=== PATIENT | male | born 1960 | race Caucasian/White ===

== ENCOUNTER 2021-11-25 20:34 | Emergency (ER) | payer MEDICARE ==
[~2021-11-25] VITALS: Ht 172.7 cm; Wt 79.0 kg
[2021-11-25] MEDS ORDERED: JARDIANCE25 MG PO (21:06)
[2021-11-25] MEDS ORDERED: HYDROCHLOROT25 MG PO (21:06)
[2021-11-25] MEDS ORDERED: PROTONIX40 M2 PO (21:08)
[2021-11-25] MEDS ORDERED: NORVASC5 M1 PO (21:09)
[2021-11-25] MEDS ORDERED: LEVOTHYROXIN112 MC1 PO (21:09)
[2021-11-25] MEDS ORDERED: VITAMIN D325 MCG PO (21:10)
[2021-11-25] MEDS ORDERED: ZITHROMAX Z-PA250 MG PO (21:11)
[2021-11-25] MEDS ORDERED: TRESIBA FL200 UNIT/M SC (21:12)
[2021-11-25] MEDS ORDERED: VOLTAREN75 MG PO (21:35)
[2021-11-25] MEDS ORDERED: LORTAB5 PO (21:35)
[2021-11-25 21:39] VITALS: BP 154/66
== END 2021-11-25 21:50 | disposition home or self-care (01) ==
LOC: ED 20:34
DX: H02.002 Unspecified entropion of right lower eyelid (principal); H02.005 Unspecified entropion of left lower eyelid; I10 Essential (primary) hypertension; E11.9 Type 2 diabetes mellitus without complications; K21.9 Gastro-esophageal reflux disease without esophagitis; Z79.4 Long term (current) use of insulin; Z86.69 Personal history of other diseases of the nervous system and sense organs

== ENCOUNTER 2021-12-02 21:39 | Emergency (ER) | payer MEDICARE ==
[~2021-12-02] VITALS: Ht 172.7 cm; Wt 79.0 kg
[~2021-12-02 21:39] MED LIST: HYDROCHLOROT25 MG PO; JARDIANCE25 MG PO; LEVOTHYROXIN112 MC1 PO; LORTAB5 PO; NORVASC5 M1 PO; PROTONIX40 M2 PO; TRESIBA FL200 UNIT/M SC; VITAMIN D325 MCG PO; VOLTAREN75 MG PO; ZITHROMAX Z-PA250 MG PO
[2021-12-02 22:50] LABS: HEMATOCRIT 32.3 % (39.0-50.0); HEMOGLOBIN 9.9 g/dl (14.0-18.0); IMMATURE GRANULOCYTES 0.5 % (0.0-5.0); MEAN CELL VOLUME 76.4 fL CALC (80.0-100.0); MEAN CORPUSCULAR HGB 23.4 pG CALC (26.0-32.0); MEAN CORPUSCULAR HGB CONC 30.7 g/dL CAL (32.0-36.0); NEUT# 6.15 thou/uL (1.82-7.42); RED BLOOD COUNT 4.23 mill/uL (4.70-6.10); RED CELL DISTRI WIDTH 15.9 % (11.5-15.5)
[2021-12-02 23:06] LABS: ALBUMIN 3.6 g/dL (3.2-5.0); ALKALINE PHOSPHATASE 105 u/l (38-126); ANION GAP 14 (6-22 (CALC)); BILIRUBIN, TOTAL 0.3 mg/dL (0.0-1.4); BUN 13 mg/dL (8-23); BUN/CREATININE RATIO 9 (12-20 (CALC)); CARBON DIOXIDE 24 mmol/l (22-30); CHLORIDE 98 mmol/l (95-108); CREATININE 1.4 mg/dL (0.7-1.3); GFR 51 ML/MIN (>=60 (CALC)); GFR FOR AFR.AMER. > 60 ML/MIN (>=60 (CALC)); POTASSIUM 3.9 mmol/l (3.5-5.1); SGOT/AST 27 u/l (19-48); SODIUM 132 mmol/l (137-146); TOTAL PROTEIN 7.1 g/dL (6.3-8.2)
[2021-12-02] MEDS ORDERED: KEFLEX500 MG PO (23:13)
[2021-12-02 23:30] VITALS: BP 145/66
== END 2021-12-02 23:33 | disposition home or self-care (01) ==
LOC: ED 21:39
PROVIDERS: Emergency Medicine
DX: T81.49XA Infection following a procedure, other surgical site, initial encounter (principal); E11.9 Type 2 diabetes mellitus without complications; I10 Essential (primary) hypertension; K21.9 Gastro-esophageal reflux disease without esophagitis; B96.5 Pseudomonas (aeruginosa) (mallei) (pseudomallei) as the cause of diseases classified elsewhere; Y83.9 Surgical procedure, unspecified as the cause of abnormal reaction of the patient, or of later complication, without mention of misadventure at the time of the procedure; Z86.14 Personal history of Methicillin resistant Staphylococcus aureus infection; Z79.4 Long term (current) use of insulin